=== PATIENT | female | born 1985 | race Hispanic/Latino ===

== ENCOUNTER 2017-12-29 09:53 | Day surgery (SDC) | payer OTHER ==
[2017-12-26 09:25] VITALS: BMI 32.5
[2017-12-29] MEDS ORDERED: Midazolam HCl 2 mg/2 ml Vial ONE (12:42)
[2017-12-29] MEDS ORDERED: Fentanyl 100 MCG/2 ML VIAL ONE (12:53)
--- NOTE | 2017-12-29 14:51 | OP ---
DATE OF PROCEDURE: 12/29/2017 SURGEON: Jhoan Carvalho M.D. [employer] SURGEON: None. PROCEDURES: 1. EGD with biopsies. 2. Colonoscopy, diagnostic. INDICATION: 1. Hematochezia. 2. Lower abdominal pain. 3. Upper abdominal pain. 4. Nausea. MEDICATIONS: See anesthesia record. FINDINGS: After discussion of the risks, benefits and alternatives of the procedure, informed consen t was obtained and witnessed. Pre-endoscopic cardiopulmonary examination was satisfactory. Timeout was performed before sedation was achieved. Sedation was achieved with anesthesia assistance in the endoscopy unit. A Pentax adult upper endoscope was placed into the oropharynx and passed through the cricopharyngeus under direct visualization. The esophageal mucosa appeared normal throughout with a normal-appearing Z-line. The endoscope was passed into the stomach. Forward and retroflexed views of the entire gastric mucosa were obtained. In the gastric body and antrum, there was some patchy mi ld erythema with friability. No significant erosions or ulcerations noted. Biopsies were obtained f rom the gastric antrum and body to rule out H. pylori infection. The endoscope was passed through th e pylorus and into the first and second portions of the duodenum which appeared normal. The upper en doscope was completely withdrawn and the patient was repositioned. Digital rectal exam was performed. The patient has a prominent external hemorrhoidal skin tag. No o ther abnormalities noted on digital exam. A Pentax adult colonoscope was inserted into the anus. Re troflexion was performed in the rectum to start out the procedure. The patient's large skin tag actu ally prolapses internally with endoscope passage, this is nonbleeding. There was a small amount of i nternal hemorrhoidal tissue as well. At this point, the colonoscope was advanced forward all the way to the cecum in the usual fashion. The cecal base was identified by the appendiceal orifice as well as the ileocecal valve. The terminal ileum was intubated and the ileal mucosa appeared normal. The colonoscope was then slowly withdrawn in a gradual and circumferential manner with careful examinati on of the entire colonic mucosa. The quality of the prep was good. The colonic mucosa appeared norm al throughout. There was no evidence of any polyps or mass lesions, no evidence of any colitis or ot her mucosal abnormalities. The colonoscope was completely withdrawn and the patient allowed to recov er. The patient tolerated the procedure well. There were no immediate post-procedure complications. IMPRESSION: 1. Mild gastritis in the antrum and body, biopsy to rule out Helicobacter pylori. 2. Otherwise, normal esophagogastroduodenoscopy. 3. Hemorrhoidal skin tag. 4. Otherwise, normal colonoscopy to the terminal ileum. RECOMMENDATIONS: 1. Follow up pathology results on the gastric biopsies. 2. Avoid or minimize nonsteroidal anti-inflammatory drugs. 3. We will start the patient on Protonix 40 mg once daily. 4. The patient can take a stool softener such as docusate 100 mg twice daily as needed for hard stoo ls or constipation. 5. We will have her follow up in the GI clinic in about a month.
== END 2017-12-29 14:30 | disposition home or self-care (01) ==
LOC: SDC 09:53
PROVIDERS: ATTEND Internal Medicine
PROC: 0DB78ZX Excision of Stomach, Pylorus, Via Natural or Artificial Opening Endoscopic, Diagnostic (ICD-10-PCS; principal; 2017-12-29)
PROC: 0DJD8ZZ Inspection of Lower Intestinal Tract, Via Natural or Artificial Opening Endoscopic (ICD-10-PCS; principal; 2017-12-29)
DX: K92.1 Melena (principal); K31.9 Disease of stomach and duodenum, unspecified; K64.8 Other hemorrhoids; Z88.5 Allergy status to narcotic agent; Z91.018 Allergy to other foods; Z79.84 Long term (current) use of oral hypoglycemic drugs; Z79.1 Long term (current) use of non-steroidal anti-inflammatories (NSAID); Z97.5 Presence of (intrauterine) contraceptive device
CPT/HCPCS: 88305; 88312; J2250; J3010

== ENCOUNTER 2021-10-08 11:43 | Emergency (ER) | payer BC ==
[2021-10-08 12:42] LABS: #Basophils 0.1 thou/uL (0.0-0.2); #Eosinphils 0.1 thou/uL (0.0-0.7); #Lymphocytes 2.1 thou/uL (1.20-3.40); #Monocytes 0.5 thou/uL (0.11-0.59); #Neutrophils 6.8 thou/uL (1.40-6.50); %Basophils 0.7 % (0.0-1.0); %Eosinophils 1.3 % (0.0-10.0); %Lymphocytes 21.7 % (21.0-51.0); %Monocytes 5.3 % (0.0-10.0); Mean Corpuscular HGB CONC 32.8 g/dL (32.0-36.0); Mean Corpuscular Hemoglobin 30.9 pg (27.0-31.0); Mean Corpuscular Volume 94.3 fL (78.0-98.0); Mean Platelet Volume 7.8 fL (7.4-10.4); Platelet Count 330 thou/uL (130-400); RBC Distribution Width 11.9 % (11.5-14.5); Red Blood Cell (RBC) Count 4.52 mill/uL (4.20-5.40); White Blood Cell (WBC) Count 9.6 thou/uL (4.8-10.8)
[2021-10-08 13:04] LABS: ALT (SGPT) 26 U/L (8-55); AST (SGOT) 16 U/L (5-34); Albumin 4.2 g/dL (3.5-5.0); Alkaline Phosphatase 85 U/L (40-110); Anion Gap 13 mmol/L (10-20); BUN (Urea Nitrogen) 13 mg/dL (7.0-18.7); Bilirubin, Total 0.6 mg/dL (0.2-1.2); Calc. Creatinine Clearance 0 mL/min (70-130); Calcium 9.4 mg/dL (7.8-10.44); Carbon Dioxide 25 mmol/L (22-29); Chloride 103 mmol/L (98-107); Globulin 3.7 g/dL (2.4-3.5); Glucose 111 mg/dL (70-105); Potassium 3.7 mmol/L (3.5-5.1); Protein, Total 7.9 g/dL (6.0-8.3); Sodium 137 mmol/L (136-145)
[2021-10-08 13:45] LABS: BHCG - Serum Negative (NEGATIVE); Pregs Control Background? CLEAR/WHITE (CLR/WHITE); Pregs Control Bar Appear? YES (CONTROL BAR)
[2021-10-08] MEDS ORDERED: Meclizine HCl 25 MG TAB ONE (14:35)
[2021-10-08] MEDS ORDERED: Ondansetron PF 4 MG/2 ML Vial ONE (14:35)
[2021-10-08] MEDS ORDERED: Lorazepam 2 MG/ML VIAL ONE (14:35)
[2021-10-08] MEDS ORDERED: Dexamethasone 10 MG/ML VIAL ONE (14:37)
== END 2021-10-08 15:30 | disposition home or self-care (01) ==
LOC: ERS 11:43
DX: J01.90 Acute sinusitis, unspecified (principal); R42 Dizziness and giddiness; E11.9 Type 2 diabetes mellitus without complications; R29.700 NIHSS score 0; Z79.899 Other long term (current) drug therapy
CPT/HCPCS: 36415; 70450; 80053; 84703; 85025; 93005; 96374; 96375; J1100; J2060; J2405

== ENCOUNTER 2021-11-06 20:01 | Emergency (ER) | payer BC ==
[2021-11-06] MEDS ORDERED: diphenhydrAMINE 50 MG/ML VIAL ONE (20:32)
[2021-11-06] MEDS ORDERED: Famotidine/PF 20 mg/2ml Vial ONE (20:32)
[2021-11-06] MEDS ORDERED: EPINEPHrine 1 MG/10 ML Abboject SYRINGE ONE (20:32)
[2021-11-06] MEDS ORDERED: Dexamethasone 10 MG/ML VIAL ONE (20:32)
[2021-11-06] MEDS ORDERED: EPINEPHrine 1 MG/ML VIAL ONE (20:36)
== END 2021-11-06 23:06 | disposition home or self-care (01) ==
LOC: ERS 20:01
DX: L50.0 Allergic urticaria (principal); E11.9 Type 2 diabetes mellitus without complications; F90.9 Attention-deficit hyperactivity disorder, unspecified type; Z79.899 Other long term (current) drug therapy
CPT/HCPCS: J0171; J1100; J1200; S0028

== ENCOUNTER 2023-01-17 08:14 | Inpatient (IN) | payer BC ==
[2023-01-17] MEDS ORDERED: Iopamidol 370 76% 100 ML VIAL ONE (10:54)
[2023-01-17] MEDS ORDERED: Lidocaine 2% 6 ML (Jelly) SYR ONE (11:40)
[2023-01-17] MEDS ORDERED: EPINEPHrine 1 MG/ML AMP ONE (11:40)
[2023-01-17] MEDS ORDERED: Bupivacaine 0.25% HCL 30 ML VIAL ONE (11:40)
[2023-01-17] MEDS ORDERED: Bacitracin Zinc Ointment 30 gm TUBE ONE (11:41)
[2023-01-17] MEDS ORDERED: SUGAMMADEX SODIUM 200 MG/2 ML VIAL ONE (11:47)
[2023-01-17] MEDS ORDERED: fentaNYL PF 100 MCG/2 ML SYRINGE ONE (11:47)
[2023-01-17] MEDS ORDERED: Midazolam HCl 2 mg/2 ml Vial ONE (11:54)
[2023-01-17] MEDS ORDERED: Sodium Chloride 0.9% 100 ML ONE (11:57)
[2023-01-17] MEDS ORDERED: cefOXitin 2 GM VIAL ONE (11:57)
[2023-01-17] MEDS ORDERED: Albuterol HFA (OR) 200 PUFF INH ONE ×2 (12:02→12:19)
[2023-01-17] MEDS ORDERED: EPINEPHrine 1 MG/10 ML Abboject SYRINGE ONE (12:02)
[2023-01-17] MEDS ORDERED: Esmolol 100 MG/10 ML VIAL ONE (12:02)
[2023-01-17] MEDS ORDERED: Lidocaine 1% PF 5 ML VIAL ONE (12:02)
[2023-01-17] MEDS ORDERED: PROPOFOL 200 MG/20 ML VIAL ONE (12:02)
[2023-01-17] MEDS ORDERED: Rocuronium Bromide 10 MG/ML (10ML VIAL) ONE (12:02)
[2023-01-17] MEDS ORDERED: Atropine Sulfate 0.4 mg/1 ml Vial ONE (12:02)
[2023-01-17] MEDS ORDERED: Magnesium 5 GM/10 ML VIAL ONE (12:23)
[2023-01-17 13:24] LABS: Actual Bicarbonate (HCO3a) 16.6 mEq/L (22-28); Base Excess (BEa) -6.8 mEq/L (-2.0 to +3.0); CO2 Tension 27.4 mmHg (35.0-45.0); Calcium, Ionized (arterial) 1.08 mmol/L (1.12-1.30); Carboxyhemoglobin (COHb) 0.3 gm% (0.0-3.0); Hematocrit-ABG 36 % (36.0-47.0); Hemoglobin (Hb) 12.3 g/dL (12.0-16.0); O2 Tension (PaO2), arterial 143.1 mmHg (80.0-100.0); pH, Arterial 7.399 (7.35-7.45)
[2023-01-17 13:27] LABS: Potassium - ABG Lab 2.57 mmol/L (3.70-5.30); Puncture Site Arterial Line
[2023-01-17] MEDS ORDERED: Lactated Ringer's 1,000 ML IV SCH (13:45)
[2023-01-17 14:15] LABS: #Basophils 0.1 thou/uL (0.0-0.2); #Eosinphils 0.1 thou/uL (0.0-0.7); #Monocytes 0.8 thou/uL (0.11-0.59); #Neutrophils 17.5 thou/uL (1.40-6.50); %Basophils 0.2 % (0.0-1.0); %Eosinophils 0.3 % (0.0-10.0); %Lymphocytes 15.9 % (21.0-51.0); %Monocytes 3.8 % (0.0-10.0); %Neutrophils 79.1 % (42.0-75.0); Hematocrit 37.8 % (36.0-47.0); Hemoglobin 12.9 g/dL (12.0-16.0); Mean Corpuscular HGB CONC 34.1 g/dL (32.0-36.0); Mean Corpuscular Hemoglobin 30.3 pg (27.0-31.0); Mean Corpuscular Volume 88.7 fl (78.0-98.0); Mean Platelet Volume 9.8 fL (7.4-10.4); Platelet Count 379 10x3/uL (130-400); RBC Distribution Width 12.6 % (11.5-14.5); Red Blood Cell (RBC) Count 4.26 mill/uL (4.20-5.40); White Blood Cell (WBC) Count 22.1 10x3/uL (4.8-10.8)
[2023-01-17] MEDS ORDERED: Propofol 1,000 MG/100 ML VIAL IV ONE (14:23)
[2023-01-17] MEDS ORDERED: Ventilator Sedation Protocol 1 EACH FS ONE (14:34)
[2023-01-17 14:37] LABS: ALT (SGPT) 365 U/L (8-55); AST (SGOT) 269 U/L (5-34); Albumin 3.8 g/dL (3.5-5.0); Alkaline Phosphatase 86 U/L (40-110); Anion Gap 21 mmol/L (10-20); BUN (Urea Nitrogen) 10 mg/dL (7.0-18.7); Calc. Creatinine Clearance 64 mL/min (70-130); Calcium 8.4 mg/dL (7.8-10.44); Carbon Dioxide 15 mmol/L (22-29); Chloride 103 mmol/L (98-107); Estimated GFR 69; Globulin 3.1 g/dL (2.4-3.5); Glucose 244 mg/dL (70-105); Protein, Total 6.9 g/dL (6.0-8.3); Sodium 136 mmol/L (136-145)
[2023-01-17 14:47] LABS: Lactic Acid 6.5 mmol/L (0.5-2.2)
[2023-01-17 14:48] LABS: Potassium 2.6 mmol/L (3.5-5.1)
[2023-01-17] MEDS ORDERED: Lorazepam 2 MG/ML VIAL ONE (15:06)
[2023-01-17] MEDS ORDERED: Electrolyte Replacement Protocol 1 EACH IVPB SCH (15:14)
[2023-01-17] MEDS ORDERED: DISCONTINUE PREVIOUS NARCOTIC PAIN MEDICATIONS AND BENZODIAZEPINES FS SCH (15:15)
[2023-01-17] MEDS ORDERED: Propofol BOLUS 1,000 MG/100 ML VIAL IV PRN (15:15)
[2023-01-17] MEDS ORDERED: Fentanyl CADD 100 ML IV SCH (15:15)
[2023-01-17] MEDS ORDERED: Fentanyl BOLUS 250 ML IVPB PRN (15:15)
[2023-01-17] MEDS ORDERED: Lorazepam 2 MG/ML VIAL SLOW IVP SCH (15:15)
[2023-01-17] MEDS ORDERED: Propofol 1,000 MG/100 ML VIAL IV PRN (15:15)
[2023-01-17] MEDS ORDERED: Morphine 2 MG/ML VIAL SLOW IVP PRN (15:15)
[2023-01-17] MEDS ORDERED: NOREPINEPHRINE 8 MG/250 ML-D5W 250 ML ONE (15:21)
[2023-01-17] MEDS: Potassium Chloride 20 MEQ in Premix 1 BAG IVPB SCH ×5 (15:29→23:42)
[2023-01-17] MEDS ORDERED: Midazolam In 0.9 % NaCl/PF 100 ML IVPB SCH (15:30)
[2023-01-17] MEDS ORDERED: Ventilator Sedation Protocol 1 EACH FS SCH (15:30)
[2023-01-17] MEDS ORDERED: Phenylephrine 40 MG/NS 250 ML 40 MG in Premix 1 BAG IVPB PRN (15:51)
[2023-01-17] MEDS: Lorazepam 2 MG/ML VIAL SLOW IVP PRN (16:18)
[2023-01-17] MEDS ORDERED: levETIRAcetam 500 MG/5 ML VIAL SLOW IVP SCH ×2 (17:00→21:00)
[2023-01-17 17:26] LABS: Magnesium 1.9 mg/dL (1.6-2.6)
[2023-01-17] MEDS: Vasopressin 20 UNITS in Sodium Chloride 0.9% 50 ML IV PRN ×2 (19:15→23:57)
[2023-01-17] MEDS: Lacosamide 200 MG in Sodium Chloride 0.9% 50 ML IVPB SCH (20:53)
[2023-01-17] MEDS ORDERED: Famotidine/PF 20 mg/2ml Vial SLOW IVP SCH (21:00)
[2023-01-17] MEDS ORDERED: Lidocaine 1% (PF) 30 ML VIAL ONE (21:09)
[2023-01-17 21:49] LABS: Anion Gap 17 mmol/L (10-20); BUN (Urea Nitrogen) 11 mg/dL (7.0-18.7); Calc. Creatinine Clearance 78 mL/min (70-130); Calcium 8.1 mg/dL (7.8-10.44); Carbon Dioxide 15 mmol/L (22-29); Chloride 105 mmol/L (98-107); Estimated GFR 85; Glucose 231 mg/dL (70-105); Potassium 3.4 mmol/L (3.5-5.1); Sodium 134 mmol/L (136-145)
[2023-01-17 22:12] LABS: Troponin I 4.469 ng/mL (< 0.028)
[2023-01-17] MEDS ORDERED: Dextrose 50% Abboject 50 ML SYRINGE SLOW IVP PRN (22:29)
[2023-01-17] MEDS ORDERED: HumaLOG 300 UNITS/3 ML VIAL SC PRN (22:29)
[2023-01-17] MEDS ORDERED: Glucagon 1 MG/ML KIT IM PRN (22:29)
[2023-01-17] MEDS ORDERED: Dextrose 5% in Water 1,000 ML IV PRN (22:29)
[2023-01-17] MEDS ORDERED: Ipratropium Bromide 2.5 ml Neb NEB PRN (22:33)
[2023-01-17 22:52] LABS: Actual Bicarbonate (HCO3a) 16.6 mEq/L (22-28); Base Excess (BEa) -6.2 mEq/L (-2.0 to +3.0); CO2 Tension 25.6 mmHg (35.0-45.0); Calcium, Ionized (arterial) 1.07 mmol/L (1.12-1.30); Carboxyhemoglobin (COHb) 0.3 gm% (0.0-3.0); Hematocrit-ABG 37 % (36.0-47.0); Hemoglobin (Hb) 12.5 g/dL (12.0-16.0); O2 Tension (PaO2), arterial 86.9 mmHg (80.0-100.0); pH, Arterial 7.429 (7.35-7.45)
[2023-01-17 22:54] LABS: Puncture Site Arterial Line
[2023-01-17] MEDS ORDERED: Sodium Bicarbonate 75 MEQ in Sodium Chloride 0.45% 1,000 ML IV SCH (23:30)
[2023-01-17] MEDS: Lactated Ringer's 1,000 ML IV SCH (23:41)
[2023-01-18] MEDS: HumaLOG 300 UNITS/3 ML VIAL SC PRN ×2 (00:25→04:08)
[2023-01-18] MEDS: Ipratropium Bromide 2.5 ml Neb NEB SCH ×2 (00:36→06:59)
[2023-01-18] MEDS: Potassium Chloride 20 MEQ in Premix 1 BAG IVPB SCH ×3 (02:01→12:54)
[2023-01-18] MEDS: NOREPINEPHRINE 8 MG/250 ML-D5W 250 ML IVPB PRN ×2 (03:20→23:45)
[2023-01-18] MEDS: Lactated Ringer's 1,000 ML IV SCH (03:54)
[2023-01-18 04:29] LABS: #Monocytes 1.2 thou/uL (0.11-0.59); #Neutrophils 22.6 thou/uL (1.40-6.50); %Basophils 0.2 % (0.0-1.0); %Lymphocytes 8.3 % (21.0-51.0); %Monocytes 4.6 % (0.0-10.0); %Neutrophils 86.2 % (42.0-75.0); Hemoglobin 11.5 g/dL (12.0-16.0); Mean Corpuscular HGB CONC 34.8 g/dL (32.0-36.0); Mean Corpuscular Hemoglobin 30.6 pg (27.0-31.0); Mean Corpuscular Volume 87.8 fl (78.0-98.0); Mean Platelet Volume 10.5 fL (7.4-10.4); Platelet Count 323 10x3/uL (130-400); RBC Distribution Width 12.6 % (11.5-14.5); Red Blood Cell (RBC) Count 3.76 mill/uL (4.20-5.40); White Blood Cell (WBC) Count 26.2 10x3/uL (4.8-10.8)
[2023-01-18 04:47] LABS: Lactic Acid 3.9 mmol/L (0.5-2.2)
[2023-01-18 04:53] LABS: ALT (SGPT) 222 U/L (8-55); AST (SGOT) 106 U/L (5-34); Albumin 3.2 g/dL (3.5-5.0); Alkaline Phosphatase 64 U/L (40-110); Anion Gap 13 mmol/L (10-20); BUN (Urea Nitrogen) 12 mg/dL (7.0-18.7); Bilirubin, Total 0.6 mg/dL (0.2-1.2); Calc. Creatinine Clearance 84 mL/min (70-130); Calcium 8.1 mg/dL (7.8-10.44); Carbon Dioxide 19 mmol/L (22-29); Chloride 104 mmol/L (98-107); Estimated GFR 93; Globulin 2.5 g/dL (2.4-3.5); Glucose 190 mg/dL (70-105); Magnesium 1.9 mg/dL (1.6-2.6); Potassium 3.5 mmol/L (3.5-5.1); Protein, Total 5.7 g/dL (6.0-8.3); Sodium 132 mmol/L (136-145)
[2023-01-18 07:05] LABS: Actual Bicarbonate (HCO3a) 18.7 mEq/L (22-28); Base Excess (BEa) -3.7 mEq/L (-2.0 to +3.0); CO2 Tension 26.6 mmHg (35.0-45.0); Calcium, Ionized (arterial) 1.08 mmol/L (1.12-1.30); Carboxyhemoglobin (COHb) 0.3 gm% (0.0-3.0); Hematocrit-ABG 35 % (36.0-47.0); Hemoglobin (Hb) 11.9 g/dL (12.0-16.0); Potassium - ABG Lab 3.33 mmol/L (3.70-5.30); pH, Arterial 7.465 (7.35-7.45)
[2023-01-18 07:11] LABS: Puncture Site Arterial Line
[2023-01-18] MEDS ORDERED: Milrinone 20 MG in Sodium Chloride 0.9% 100 ML IVPB SCH (07:30)
[2023-01-18] MEDS ORDERED: Milrinone Lactate/D5W 20 MG in Premix 1 BAG IVPB SCH (07:45)
[2023-01-18] MEDS ORDERED: Magnesium 2 GM/50 ML(in water) 2 GM in Premix 1 BAG IVPB SCH (08:00)
[2023-01-18] MEDS: Sodium Chloride 0.9% 1,000 ML IV SCH (09:30)
[2023-01-18] MEDS: Doxycycline 100 MG in Sodium Chloride 0.9% 100 ML IVPB SCH ×2 (09:31→21:31)
[2023-01-18] MEDS: levETIRAcetam 500 MG/5 ML VIAL SLOW IVP SCH ×2 (09:33→21:31)
[2023-01-18] MEDS: Pantoprazole 40 MG VIAL IVP SCH (09:34)
[2023-01-18] MEDS: Lacosamide 200 MG in Sodium Chloride 0.9% 50 ML IVPB SCH ×2 (09:56→20:18)
[2023-01-18 10:52] VITALS: BMI 25.0
[2023-01-18] MEDS: Ondansetron PF 4 MG/2 ML Vial IVP PRN (23:24)
[2023-01-18] MEDS ORDERED: Sodium Bicarb 50 MEQ/50 ML VIAL ONE (23:31)
[2023-01-18] MEDS ORDERED: Adenosine 6 MG/2 ML VIAL ONE (23:35)
[2023-01-18] MEDS ORDERED: Digoxin 0.5 MG/2 ML AMP ONE (23:38)
[2023-01-19 00:12] LABS: Actual Bicarbonate (HCO3a) 17.7 mEq/L (22-28); Base Excess (BEa) -6.2 mEq/L (-2.0 to +3.0); CO2 Tension 29.8 mmHg (35.0-45.0); Calcium, Ionized (arterial) 1.07 mmol/L (1.12-1.30); Carboxyhemoglobin (COHb) 0.3 gm% (0.0-3.0); Hematocrit-ABG 32 % (36.0-47.0); Hemoglobin (Hb) 10.8 g/dL (12.0-16.0); O2 Tension (PaO2), arterial 211.9 mmHg (80.0-100.0); Potassium - ABG Lab 3.32 mmol/L (3.70-5.30); pH, Arterial 7.392 (7.35-7.45)
[2023-01-19 00:15] LABS: Puncture Site Arterial Line
[2023-01-19] MEDS ORDERED: Midazolam HCl 2 mg/2 ml Vial SLOW IVP PRN (00:21)
[2023-01-19] MEDS: Potassium Chloride 20 MEQ in Premix 1 BAG IVPB SCH ×2 (00:34→02:31)
[2023-01-19] MEDS: Ondansetron PF 4 MG/2 ML Vial IVP PRN (00:47)
[2023-01-19] MEDS: Lorazepam 2 MG/ML VIAL SLOW IVP PRN (00:56)
[2023-01-19] MEDS ORDERED: Fentanyl CADD 100 ML ONE (00:58)
[2023-01-19] MEDS ORDERED: Sodium Chloride 0.9% 500 ML IV SCH (01:30)
[2023-01-19 02:16] LABS: #Basophils 0.1 thou/uL (0.0-0.2); #Monocytes 1.7 thou/uL (0.11-0.59); %Basophils 0.3 % (0.0-1.0); %Lymphocytes 6.1 % (21.0-51.0); %Monocytes 5.3 % (0.0-10.0); %Neutrophils 87.6 % (42.0-75.0); Hematocrit 31.1 % (36.0-47.0); Hemoglobin 10.7 g/dL (12.0-16.0); Mean Corpuscular HGB CONC 34.4 g/dL (32.0-36.0); Mean Corpuscular Hemoglobin 30.7 pg (27.0-31.0); Mean Corpuscular Volume 89.1 fl (78.0-98.0); Mean Platelet Volume 10.3 fL (7.4-10.4); Platelet Count 270 10x3/uL (130-400); Red Blood Cell (RBC) Count 3.49 mill/uL (4.20-5.40)
[2023-01-19] MEDS: Sodium Chloride 0.9% 1,000 ML IV SCH (02:33)
[2023-01-19 02:43] LABS: ALT (SGPT) 150 U/L (8-55); AST (SGOT) 71 U/L (5-34); Albumin 3.1 g/dL (3.5-5.0); Alkaline Phosphatase 78 U/L (40-110); Anion Gap 17 mmol/L (10-20); BUN (Urea Nitrogen) 6 mg/dL (7.0-18.7); Bilirubin, Total 0.8 mg/dL (0.2-1.2); Calc. Creatinine Clearance 101 mL/min (70-130); Calcium 7.7 mg/dL (7.8-10.44); Carbon Dioxide 15 mmol/L (22-29); Chloride 107 mmol/L (98-107); Estimated GFR 111; Globulin 2.7 g/dL (2.4-3.5); Glucose 220 mg/dL (70-105); Potassium 4.6 mmol/L (3.5-5.1); Protein, Total 5.8 g/dL (6.0-8.3); Sodium 134 mmol/L (136-145)
[2023-01-19 03:32] LABS: Troponin I 4.263 ng/mL (< 0.028)
[2023-01-19] MEDS: NOREPINEPHRINE 8 MG/250 ML-D5W 250 ML IVPB PRN ×2 (06:31→17:36)
[2023-01-19] MEDS: Vasopressin 20 UNITS in Sodium Chloride 0.9% 50 ML IV PRN ×2 (06:31→16:39)
[2023-01-19] MEDS ORDERED: Lactated Ringer's 1,000 ML IV SCH (06:45)
[2023-01-19 06:54] LABS: Actual Bicarbonate (HCO3a) 17.7 mEq/L (22-28); Base Excess (BEa) -3.9 mEq/L (-2.0 to +3.0); Calcium, Ionized (arterial) 1.06 mmol/L (1.12-1.30); Carboxyhemoglobin (COHb) 0.3 gm% (0.0-3.0); Hematocrit-ABG 33 % (36.0-47.0); Hemoglobin (Hb) 11.3 g/dL (12.0-16.0); O2 Tension (PaO2), arterial 148.5 mmHg (80.0-100.0); Potassium - ABG Lab 4.19 mmol/L (3.70-5.30); pH, Arterial 7.504 (7.35-7.45)
[2023-01-19 06:59] LABS: Puncture Site Arterial Line
[2023-01-19 07:44] LABS: Magnesium 1.9 mg/dL (1.6-2.6)
[2023-01-19 07:58] LABS: Phosphorus Less than 1.0 mg/dL (2.3-4.7)
[2023-01-19] MEDS ORDERED: Potassium Phosphate 12 MMOL in Sodium Chloride 0.9% 100 ML IVPB SCH (08:15)
[2023-01-19] MEDS ORDERED: Electrolyte Replacement Protocol FS PRN (08:30)
[2023-01-19] MEDS: Doxycycline 100 MG in Sodium Chloride 0.9% 100 ML IVPB SCH (08:48)
[2023-01-19] MEDS: Pantoprazole 40 MG VIAL IVP SCH (08:49)
[2023-01-19] MEDS: levETIRAcetam 500 MG/5 ML VIAL SLOW IVP SCH (08:49)
[2023-01-19] MEDS ORDERED: Potassium Phosphate 30 MMOL in Sodium Chloride 0.9% 250 ML 250 ML IVPB SCH (09:00)
[2023-01-19] MEDS ORDERED: Dextrose 5 %-0.45 % NaCl 1,000 ML IV SCH (09:15)
[2023-01-19] MEDS ORDERED: Sodium Bicarbonate 140 MEQ in Dextrose 5% in Water 1,000 ML IV SCH (09:15)
[2023-01-19] MEDS: Lacosamide 200 MG in Sodium Chloride 0.9% 50 ML IVPB SCH (09:24)
[2023-01-19] MEDS ORDERED: Sodium Phosphate 40 MMOL in Sodium Chloride 0.9% 250 ML 250 ML IVPB SCH (10:00)
[2023-01-19] MEDS: Metoclopramide HCl 10 MG/2 ML VIAL IVP SCH ×2 (10:13→17:36)
[2023-01-19] MEDS ORDERED: Magnesium 2 GM/50 ML(in water) 2 GM in Premix 1 BAG IVPB SCH (13:45)
[2023-01-19 16:17] LABS: Phosphorus 2.8 mg/dL (2.3-4.7)
[2023-01-19 18:59] VITALS: BP 88/55
[2023-01-19 20:39] VITALS: TEMP 99.1
[2023-01-21 05:12] LABS: Tryptase 3.1 ug/L (2.2-13.2)
[2023-02-11 13:05] LABS: Actual Bicarbonate (HCO3a) 16.9 mEq/L (22-28); Analyzer IN Cardio OR; CO2 Tension 50.9 mmHg (35.0-45.0); Calcium, Ionized (arterial) 1.21 mmol/L (1.12-1.30); Carboxyhemoglobin (COHb) 0.2 gm% (0.0-3.0); Hematocrit-ABG 36 % (36.0-47.0); Hemoglobin (Hb) 12.4 g/dL (12.0-16.0); O2 Tension (PaO2), arterial 88.7 mmHg (80.0-100.0); Potassium - ABG Lab 3.15 mmol/L (3.70-5.30)
[2023-02-11 13:09] LABS: Puncture Site Arterial Line; pH, Arterial 7.139 (7.35-7.45)
== END 2023-01-19 20:30 | disposition short-term general hospital (02) | DRG 208 ==
LOC: SDC 08:14 → CCU 13:08
PROVIDERS: ADMIT Surgery; ATTEND Surgery
PROC: 5A12012 Performance of Cardiac Output, Single, Manual (ICD-10-PCS; principal; 2023-01-17)
PROC: 5A1945Z Respiratory Ventilation, 24-96 Consecutive Hours (ICD-10-PCS; 2023-01-17)
PROC: 4A023N7 Measurement of Cardiac Sampling and Pressure, Left Heart, Percutaneous Approach (ICD-10-PCS; 2023-01-17)
PROC: 02HV33Z Insertion of Infusion Device into Superior Vena Cava, Percutaneous Approach (ICD-10-PCS; 2023-01-17)
PROC: B2111ZZ Fluoroscopy of Multiple Coronary Arteries using Low Osmolar Contrast (ICD-10-PCS; 2023-01-17)
PROC: B2151ZZ Fluoroscopy of Left Heart using Low Osmolar Contrast (ICD-10-PCS; 2023-01-17)
PROC: 0BH17EZ Insertion of Endotracheal Airway into Trachea, Via Natural or Artificial Opening (ICD-10-PCS; 2023-01-17)
PROC: 4A133R1 Monitoring of Arterial Saturation, Peripheral, Percutaneous Approach (ICD-10-PCS; 2023-01-17)
PROC: 3E043XZ Introduction of Vasopressor into Central Vein, Percutaneous Approach (ICD-10-PCS; 2023-01-17)
PROC: B548ZZA Ultrasonography of Superior Vena Cava, Guidance (ICD-10-PCS; 2023-01-17)
DX: J69.0 Pneumonitis due to inhalation of food and vomit (principal); I46.9 Cardiac arrest, cause unspecified; J96.01 Acute respiratory failure with hypoxia; K72.00 Acute and subacute hepatic failure without coma; R57.0 Cardiogenic shock; E87.29 Other acidosis; E87.1 Hypo-osmolality and hyponatremia; G93.1 Anoxic brain damage, not elsewhere classified; E87.3 Alkalosis; T85.628A Displacement of other specified internal prosthetic devices, implants and grafts, initial encounter; I47.20 Ventricular tachycardia, unspecified; I42.8 Other cardiomyopathies; K64.9 Unspecified hemorrhoids; E11.9 Type 2 diabetes mellitus without complications; E87.6 Hypokalemia; G40.901 Epilepsy, unspecified, not intractable, with status epilepticus; I95.9 Hypotension, unspecified; R74.01 Elevation of levels of liver transaminase levels; F90.9 Attention-deficit hyperactivity disorder, unspecified type; J45.909 Unspecified asthma, uncomplicated; E83.39 Other disorders of phosphorus metabolism; Z98.890 Other specified postprocedural states; Z88.5 Allergy status to narcotic agent; Z91.018 Allergy to other foods; Z79.51 Long term (current) use of inhaled steroids; Z82.49 Family history of ischemic heart disease and other diseases of the circulatory system; Z79.899 Other long term (current) drug therapy; Z83.3 Family history of diabetes mellitus; Z90.710 Acquired absence of both cervix and uterus; R00.1 Bradycardia, unspecified; T44.5X5A Adverse effect of predominantly beta-adrenoreceptor agonists, initial encounter; Y83.8 Other surgical procedures as the cause of abnormal reaction of the patient, or of later complication, without mention of misadventure at the time of the procedure; T46.0X5A Adverse effect of cardiac-stimulant glycosides and drugs of similar action, initial encounter
CPT/HCPCS: 36415; 36416; 70450; 71045; 80053; 82785; 82805; 83519; 83605; 83735; 83880; 84100; 84145; 84484; 85025; 87040; 93005; 93010; 93306; 93458; 94002; 94003; 94640; 95816; 95819; C1769; C1894; C9113; C9254; J0171; J0461; J0694; J1160; J1650; J1815; J1953; J2001; J2060; J2250; J2260; J2405; J2704; J2765; J3010; J3475; J3480; J3490; J7042; J7050; J7120; J7611; Q9967; S0020; S0028

== ENCOUNTER 2023-08-29 12:48 | Emergency (ER) | payer BC ==
[2023-08-29] MEDS ORDERED: Lidocaine 2% Viscous 10 mL, Alum & Magn 30 mL SSW SCH (13:15)
[2023-08-29] MEDS ORDERED: Mag-Al 1200 mg/1200 mg/30 ML UDCUP ONE (13:17)
[2023-08-29] MEDS ORDERED: Acetaminophen 325 MG TAB ONE (13:17)
[2023-08-29 13:50] LABS: #Basophils 0.05 10x3/uL (0.0-0.2); %Basophils 0.5 % (0.0-1.0); %Eosinophils 1.4 % (0.0-10.0); %Lymphocytes 38.4 % (21.0-51.0); %Monocytes 9.5 % (0.0-10.0); %Neutrophils 49.8 % (42.0-75.0); Hematocrit 40.7 % (36.0-47.0); Hemoglobin 13.5 g/dL (12.0-16.0); Mean Corpuscular HGB CONC 33.2 g/dL (32.0-36.0); Mean Corpuscular Hemoglobin 30.5 pg (27.0-31.0); Mean Corpuscular Volume 91.9 fL (78.0-98.0); Platelet Count 337 10x3/uL (130-400); RBC Distribution Width 12.7 % (11.5-14.5); Red Blood Cell (RBC) Count 4.43 mill/uL (4.20-5.40)
[2023-08-29 14:06] LABS: BHCG - Serum Negative (NEGATIVE); Pregs Control Background? CLEAR/WHITE (CLR/WHITE); Pregs Control Bar Appear? YES (CONTROL BAR)
[2023-08-29 14:14] LABS: Troponin I Less than 0.010 ng/mL (< 0.028)
[2023-08-29 14:19] LABS: ALT (SGPT) 22 U/L (8-55); AST (SGOT) 15 U/L (5-34); Albumin 3.8 g/dL (3.5-5.0); Alkaline Phosphatase 76 U/L (40-110); Anion Gap 13 mmol/L (10-20); BUN (Urea Nitrogen) 10 mg/dL (7.0-18.7); Bilirubin, Total 0.3 mg/dL (0.2-1.2); Calc. Creatinine Clearance 0 mL/min (70-130); Calcium 9.2 mg/dL (7.8-10.44); Carbon Dioxide 23 mmol/L (22-29); Chloride 107 mmol/L (98-107); Estimated GFR 114; Globulin 3.5 g/dL (2.4-3.5); Glucose 105 mg/dL (70-105); Lipase 22 U/L (8-78); Potassium 3.7 mmol/L (3.5-5.1); Protein, Total 7.3 g/dL (6.0-8.3); Sodium 139 mmol/L (136-145)
== END 2023-08-29 17:39 | disposition home or self-care (01) ==
LOC: ERS 12:48
DX: R07.89 Other chest pain (principal); R10.13 Epigastric pain; R10.11 Right upper quadrant pain; E11.9 Type 2 diabetes mellitus without complications
CPT/HCPCS: 36415; 71045; 76705; 80053; 83690; 84484; 84703; 85025; 93005

== ENCOUNTER 2024-04-19 11:23 | Emergency (ER) | payer BC ==
[2024-04-19 11:50] LABS: #Basophils 0.03 10x3/uL (0.0-0.2); %Basophils 0.3 % (0.0-1.0); %Eosinophils 1.3 % (0.0-10.0); %Lymphocytes 31.1 % (21.0-51.0); %Monocytes 8.3 % (0.0-10.0); %Neutrophils 58.7 % (42.0-75.0); Hematocrit 39.5 % (36.0-47.0); Hemoglobin 13.1 g/dL (12.0-16.0); Mean Corpuscular HGB CONC 33.2 g/dL (32.0-36.0); Mean Corpuscular Hemoglobin 29.5 pg (27.0-31.0); Mean Platelet Volume 9.4 fL (7.4-10.4); Platelet Count 428 10x3/uL (130-400); RBC Distribution Width 13.6 % (11.5-14.5); Red Blood Cell (RBC) Count 4.44 mill/uL (4.20-5.40)
[2024-04-19 12:10] LABS: ALT (SGPT) 31 U/L (8-55); AST (SGOT) 16 U/L (5-34); Albumin 3.7 g/dL (3.5-5.0); Alkaline Phosphatase 85 U/L (40-110); Anion Gap 12 mmol/L (10-20); BUN (Urea Nitrogen) 13 mg/dL (7.0-18.7); Bilirubin, Total 0.2 mg/dL (0.2-1.2); Calc. Creatinine Clearance 0 mL/min (70-130); Calcium 9.1 mg/dL (7.8-10.44); Carbon Dioxide 27 mmol/L (22-29); Chloride 106 mmol/L (98-107); Estimated GFR 114; Globulin 3.6 g/dL (2.4-3.5); Glucose 110 mg/dL (70-105); Potassium 3.9 mmol/L (3.5-5.1); Protein, Total 7.3 g/dL (6.0-8.3); Sodium 141 mmol/L (136-145)
[2024-04-19] MEDS ORDERED: Meclizine HCl 25 MG TAB ONE (14:42)
[2024-04-19] MEDS ORDERED: Prochlorperazine 10 MG/2 ML VIAL ONE (14:42)
[2024-04-19] MEDS ORDERED: diphenhydrAMINE 50 MG/ML VIAL ONE (14:42)
[2024-04-19] MEDS ORDERED: Acetaminophen 500 MG TAB ONE (14:42)
[2024-04-19] MEDS ORDERED: Dexamethasone 10 MG/ML VIAL ONE (14:42)
[2024-04-19 15:19] LABS: Bacteria/HPF None Seen HPF (None Seen); Bilirubin Negative (Negative); Blood, Urine Negative (Negative); CAUTI Indications for Culture Dysuria,urgency,freq; Clarity Clear (Clear); Glucose, Urine (Dipstick) Normal (Negative); Ketone, Urine Negative (Negative); Leukocyte Negative Leu/uL (Negative); Nitrite Negative (Negative); Protein, Urine (Dipstick) Negative (Neg-Trace); RBC/HPF 0-3 HPF (0-3); Specific Gravity, Urine 1.019 (1.002-1.036); Urobilinogen Normal mg/dL (Less than 2); WBC/HPF 0-3 HPF (0-3)
[2024-04-19 15:20] LABS: Urine Culture Reflex No No
== END 2024-04-19 16:55 | disposition home or self-care (01) ==
LOC: ERS 11:23
DX: R51.9 Headache, unspecified (principal); R42 Dizziness and giddiness; R29.700 NIHSS score 0; E11.9 Type 2 diabetes mellitus without complications
CPT/HCPCS: 36415; 70450; 80053; 81001; 85025; 93005; 96374; 96375; J0780; J1100; J1200